=== PATIENT | male | born 1955 | race Caucasian/White ===

== ENCOUNTER 2017-07-21 17:00 | Emergency (ER) | payer BC ==
[~2017-07-21] VITALS: Ht 185.4 cm; Wt 111.2 kg
[2017-07-21 17:36] LABS: HEMATOCRIT 42.6 % (38.0-50.0); MCH 28.7 PG (29.0-34.0); MCHC 33.3 G/DL (30.0-36.0); MCV 86.1 FL (86-99); MEAN PLAT.VOLUME 9.3 uM^3 (9.0-12.4); PLATELET COUNT 270 K/uL (156-360); RBC DIS.WIDTH-CV 12.9 % (11.8-14.6); RBC DIS.WIDTH-SD 39.9 % (39-53); RED BLOOD COUNT 4.95 M/uL (4.00-5.50); WHITE BLOOD COUNT 10.1 K/uL (4.1-10.2)
[2017-07-21 17:49] LABS: CHLORIDE 109 mEq/L (99-109); POTASSIUM 3.8 mEq/L (3.7-5.4); SODIUM 141 mEq/L (136-147)
[2017-07-21 17:51] LABS: GLUCOSE 133 mg/dL (70-99)
[2017-07-21 17:52] LABS: ANION GAP 9 MEQ/L (2-14)
[2017-07-21 17:54] LABS: GFR ESTIMATE (CALCULATED) > 59 mL/min/
[2017-07-21 17:55] LABS: UREA NITROGEN (BUN) 20 mg/dL (9-23)
[2017-07-21 18:01] LABS: TROP-I INTERPRETATION NEGATIVE; TROPONIN-I < 0.01 ng/mL (0.0-0.30)
[2017-07-21 19:27] VITALS: BP 121/71
== END 2017-07-21 19:27 | disposition home or self-care (01) ==
LOC: EME 17:00
PROVIDERS: Physician Assistant
DX: R00.2 Palpitations (principal); J06.9 Acute upper respiratory infection, unspecified; E11.9 Type 2 diabetes mellitus without complications
CPT/HCPCS: 71020; 80048; 84484; 85027; 93005; 99281; 99284